=== PATIENT | male | born 1955 | race Caucasian/White ===

== ENCOUNTER 2017-01-09 22:47 | Observation (INO) | payer MEDICAID, OTHER ==
[2017-01-09 22:47] VITALS: BMI 26.6
[2017-01-09 22:52] VITALS: BP 168/100; PULSE 91; RESP 16; TEMP 98.5; O2SAT 98
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
[2017-01-10 00:26] LABS: BASO # 0.1 K/uL (0.0-0.2); BASO % 0.9 % (0.0-2.0); EOS # 0.1 K/uL (0.0-0.7); EOS % 2.1 % (0.0-4.0); HEMOGLOBIN 9.8 g/dL (12.0-18.0); LYMPH # 1.4 K/uL (1.0-4.3); LYMPH % 24.1 % (20.0-40.0); MEAN CELL VOLUME 79.9 fl (80.0-94.0); MEAN CORPUSCULAR HEMOGLOBIN 25.3 pg (27.0-31.0); MEAN CORPUSCULAR HGB CONC 31.6 g/dL (33.0-37.0); MEAN PLATELET VOLUME 7.4 fl (7.2-11.7); MONO # 0.8 K/uL (0.0-0.8); MONO % 13.1 % (0.0-10.0); NEUT # 3.5 K/uL (1.8-7.0); NEUT % 59.8 % (50.0-75.0); RBC 3.88 Mil/uL (4.40-5.90); RED CELL DISTRIBUTION WIDTH 19.2 % (11.5-14.5); WHITE BLOOD COUNT 5.9 K/uL (4.8-10.8)
[2017-01-10 00:31] LABS: ALB/GLOB RATIO 1.4 (1.0-2.1); ALBUMIN 4.4 g/dL (3.5-5.0); ALT/SGPT 36 U/L (21-72); AST/SGOT 26 U/L (17-59); BLOOD UREA NITROGEN 19 mg/dl (9-20); GFR AFRICAN-AMERICAN > 60; GFR NON-AFRICAN AMERICAN > 60
--- NOTE | 2017-01-10 00:36 | ED PDOC ---
- Laboratory Results Result Diagrams: 01/09/17 23:59 01/09/17 23:59 - ECG O2 Sat by Pulse Oximetry: 98 - Progress ED Course And Treament: Assumed care from Dr Beard. Pending labs and observation. Medical Decision Making Medical Decision Making: Troponins are negative x2. Patient has no chest pain. Low risk factors. Disposition Doctor Will See Patient In The: Office Counseled Patient/Family Regarding: Studies Performed, Diagnosis, Need For Followup - Clinical Impression Clinical Impression: Chest pain, Adjustment disorder - POA Present On Arrival: None - Disposition Disposition: Routine/Home Disposition Time: 04:51 Condition: GOOD
[2017-01-10] MEDS ORDERED: Anusol Suppository ONE (03:23)
[2017-01-10] MEDS ORDERED: Anusol Suppository PR ONE (05:25)
--- NOTE | 2017-01-10 08:08 | RAD ---
HISTORY: chest pain COMPARISON: No prior. TECHNIQUE: Chest PA and lateral FINDINGS: LUNGS: No active pulmonary disease. PLEURA: No significant pleural effusion identified. No pneumothorax apparent. CARDIOVASCULAR: Normal. OSSEOUS STRUCTURES: No significant abnormalities. VISUALIZED UPPER ABDOMEN: Normal. OTHER FINDINGS: None. IMPRESSION: No active disease.
--- NOTE | 2017-01-10 20:16 | CARD ---
APPROVED REPORT EKG Measurement Heart [id number] <Conclusion> Normal sinus rhythm Left bundle branch block Abnormal ECG
== END 2017-01-10 05:27 ==
LOC: H.ER 22:47 → H.EROBSV 23:00
PROVIDERS: ADMIT Emergency Medicine; ATTEND Emergency Medicine
DX: F43.20 Adjustment disorder, unspecified (principal); I10 Essential (primary) hypertension; F32.9 Major depressive disorder, single episode, unspecified; K29.70 Gastritis, unspecified, without bleeding; M19.90 Unspecified osteoarthritis, unspecified site; R07.9 Chest pain, unspecified

== ENCOUNTER 2017-08-17 01:06 | Emergency (ER) | payer MEDICAID, OTHER ==
[2017-08-17 01:06] VITALS: BMI 26.6
[2017-08-17 01:20] VITALS: BP 143/73; PULSE 83; RESP 16; TEMP 98.6; O2SAT 98
--- NOTE | 2017-08-17 03:14 | ED PDOC ---
HPI: Psych/Substance Abuse Time Seen by Provider: 08/17/17 01:17 Chief Complaint (Nursing): Alcohol Ingestion Chief Complaint (Provider): Alcohol Ingestion History Per: Patient Additional Complaint(s): 62 y/o male with past medical history of depression and alcoholism presents to the ED for detoxification. Denies ant falls, injuries or any further medical complaints. Past Medical History Reviewed: Historical Data, Nursing Documentation, Vital Signs Vital Signs: Last Vital Signs Temp 98.6 F 08/17/17 01:18 Pulse 83 08/17/17 01:18 Resp 16 08/17/17 01:18 BP 143/73 08/17/17 01:18 Pulse Ox 98 08/17/17 01:18 - Medical History PMH: Arthritis (knee), Depression, Gastritis, HTN Denies: Anemia, Diabetes, Hepatitis, HIV, Chronic Kidney Disease, Seizures, Sexually Transmitted Disease - Family History Family History: States: Unknown Family Hx - Social History Current smoker - smoking cessation education provided: No Alcohol: > 2 Drinks/Day (Heavy Drinker) Drugs: Denies - Immunization History Hx Tetanus Toxoid Vaccination: No Hx Influenza Vaccination: No Hx Pneumococcal Vaccination: No - Home Medications Home Medications: Ambulatory Orders Medication Instructions Recorded Carvedilol [Coreg] 25 mg PO DAILY 04/23/17 Omeprazole Magnesium [Prilosec Otc] 20 mg PO DAILY 04/23/17 - Allergies Allergies/Adverse Reactions: Allergies Allergy/AdvReac Type Severity Reaction Status Date / Time No Known Allergies Allergy Verified 08/17/17 01:18 Review of Systems ROS Statement: Except As Marked, All Systems Reviewed And Found Negative (As per HPI, otherwise negative) Neurological: Negative for: Other (Denies any falls or injuries) Psych: Positive for: Other (Patient is here for detoxification) Physical Exam - Reviewed Nursing Documentation Reviewed: Yes Vital Signs Reviewed: Yes - Physical Exam Appears: Positive for: Uncomfortable (Patient has a poor hygiene) Head Exam: Positive for: ATRAUMATIC, NORMAL INSPECTION Skin: Positive for: Normal Color, Warm, Dry Eye Exam: Positive for: Normal appearance ENT: Positive for: Normal ENT Inspection Neck: Positive for: Normal Cardiovascular/Chest: Positive for: Regular Rate, Rhythm. Negative for: Murmur Respiratory: Positive for: Normal Breath Sounds. Negative for: Accessory Muscle Use, Respiratory Distress Back: Positive for: Normal Inspection Extremity: Negative for: Deformity - ECG O2 Sat by Pulse Oximetry: 98 (RA) Pulse Ox Interpretation: Normal Medical Decision Making Medical Decision Making: Time: 03:01 Initial Impression: Alcohol Ingestion Plan: Alcohol Serum Reevaluation pt with stable gait, clinically sober. pt stable for dc. Scribe Attestation: Documented by Barbie Barahona acting as a scribe for Douglas Mar MD. Scribe Attestation: All medical record entries made by the Scribe were at my direction and personally dictated by me. I have reviewed the chart and agree that the record accurately reflects my personal performance of the history, physical exam, medical decision making, and the department course for this patient. I have also personally directed, reviewed, and agree with the discharge instructions and disposition. I Disposition - Clinical Impression Clinical Impression: Alcohol abuse - Patient ED Disposition Is Patient to be Admitted: No Counseled Patient/Family Regarding: Studies Performed, Diagnosis, Need For Followup - Disposition Referrals: Landy Barahona MD [Primary Care Provider] - Disposition: Routine/Home Disposition Time: 03:00 Condition: IMPROVED Additional Instructions: follow up with your primary doctor in 1-2 days return to the ED with any worsening or concerning symptoms Instructions: Alcohol Abuse and Alcoholism (DC) Forms: [employer] ([place] Citizen)
== END 2017-08-17 03:08 | disposition home or self-care (01) ==
LOC: H.ER 01:06
DX: F10.10 Alcohol abuse, uncomplicated (principal); F32.9 Major depressive disorder, single episode, unspecified; I10 Essential (primary) hypertension

== ENCOUNTER 2018-11-09 00:16 | Emergency (ER) | payer MEDICAID, OTHER ==
[2018-11-09 00:17] VITALS: BMI 29.0
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
[2018-11-09 06:18] VITALS: BP 124/81; PULSE 83; RESP 18; TEMP 98.3
[2018-11-11 10:19] VITALS: O2SAT 98
== END 2018-11-09 06:18 | disposition home or self-care (01) ==
LOC: H.ER 00:16
DX: F10.129 Alcohol abuse with intoxication, unspecified (principal); Z86.59 Personal history of other mental and behavioral disorders; Y90.8 Blood alcohol level of 240 mg/100 ml or more; I10 Essential (primary) hypertension